=== PATIENT | male | born 1980 | race Caucasian/White ===

== ENCOUNTER 2018-01-07 16:17 | Emergency (ER) | payer OTHER ==
[~2018-01-07] VITALS: Ht 177.8 cm; Wt 117.9 kg
[2018-01-07 16:52] LABS: ABSOLUTE BASOPHIL COUNT 0.1 /CUMM (0.0-0.2); ABSOLUTE EOSINOPHIL COUNT 0.1 /CUMM (0.0-0.7); ABSOLUTE GRANULOCYTE CT 9.5 /CUMM (1.4-6.5); ABSOLUTE LYMPH COUNT 2.9 /CUMM (1.2-3.4); ABSOLUTE MONOCYTE COUNT 1.1 /CUMM (0.10-0.60); BASOPHIL % 0.5 % (0.0-2.0); EOSINOPHIL % 0.8 % (0-5); GRANULOCYTE % 69.5 % (42.2-75.2); HEMATOCRIT 46.7 % (42-52); MEAN CORPUSCULAR HGB CONC 33.3 G/DL (33.0-37.0); MEAN PLATELET VOLUME 8.1 FL (7.4-10.4); PLATELET COUNT 280 /CUMM (130-400); RBC DISTRIBUTION WIDTH 12.6 % (11.5-14.5); RED BLOOD CELL CT 5.18 /CUMM (4.70-6.10); WHITE BLOOD CELL COUNT 13.6 /CUMM (4.8-10.8)
--- NOTE | 2018-01-07 18:40 | ED GENERAL ADULT ---
History of Present Illness General Chief Complaint: Chest Pain Stated Complaint: SENT WALKIN FOR CHEST PRESSURE X FEW DAYS Source: patient Exam Limitations: no limitations Vital Signs & Intake/Output Vital Signs & Intake/Output Vital Signs Date Time Temp Pulse Resp B/P B/P Pulse O2 O2 Flow FiO2 Mean Ox Delivery Rate 01/07 2121 98.7 78 20 134/81 98 Room Air 01/07 2105 96 01/07 1920 98 Room Air 01/07 1918 99.3 82 16 132/72 98 Room Air 01/07 1633 99.2 92 18 160/88 96 Room Air Allergies Coded Allergies: No Known Allergies (01/07/18) Reconcile Medications No Known Home Medications Triage Note: PT STATES THAT FOR THE PAST 2 DAYS HE HAS BEEN HAVING MID CP/STOMACH PAIN AND COMPLAINS OF TIGHTNESS. PAIN DOES NOT RADIATE INTO ARM/JAW. DENIES N/V/D/SOB Triage Nurses Notes Reviewed? yes Onset: Abrupt Duration: day(s): Timing: recent history HPI: 01/07/18 7:30 PM 37-year-old male presents to the emergency department with intermittent chest tightness over the past several days. He was seen at an urgent care center and referred to the emergency department for further evaluation. He says that the pain is bilateral subcostal and worse with inspiration. He denies shortness of breath. (Joaquín Payan DO) Past History Travel History Traveled to [place] past 21 day No Medical History Any Pertinent Medical History? 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 No (Joaquín Payan DO) Review of Systems Review of Systems Constitutional: Denies: fever. EENTM: Reports: no symptoms. Respiratory: Denies: short of breath. Cardiovascular: Reports: chest pain. GI: Denies: abdominal pain. Genitourinary: Reports: no symptoms. Musculoskeletal: Reports: see HPI. Skin: Denies: rash. Neurological/Psychological: Reports: no symptoms. Hematologic/Endocrine: Reports: no symptoms. Immunologic/Allergic: Reports: no symptoms. (Joaquín Payan DO) Physical Exam Physical Exam General Appearance: well developed/nourished, alert, awake, anxious, mild distress Head: atraumatic, normal appearance Eyes: Bilateral: normal appearance, PERRL, EOMI. Ears, Nose, Throat: normal pharynx, normal ENT inspection Neck: normal inspection, supple Respiratory: normal breath sounds, chest non-tender, no respiratory distress Cardiovascular: regular rate/rhythm Peripheral Pulses: 4+ radial (R), 4+ radial (L) Gastrointestinal: soft, non-tender Back: normal range of motion Extremities: no edema Neurologic/Psych: no motor/sensory deficits, awake, alert, oriented x 3 Skin: intact, normal color, warm/dry Core Measures ACS in differential dx? Yes CVA/TIA Diagnosis: No Sepsis Present: No Sepsis Focused Exam Completed? No (Joaquín Payan DO) Progress Differential Diagnoses I considered the following diagnoses in my evaluation of the patient: [Acute coronary syndrome, pulmonary embolism, pneumothorax, reactive airway disease, bronchitis, pneumonia, costochondritis] Plan of Care: Orders Procedure Date/time Status TROPONIN LEVEL 01/08 1940 Complete EKG 01/07 194 Active Add-on Test (ER Only) 01/07 1908 Active D-DIMER 01/07 1641 Complete TROPONIN LEVEL 01/07 1637 Complete COMPREHENSIVE METABOLIC PANEL 01/07 1637 Complete CBC WITHOUT DIFFERENTIAL 01/07 163 Complete EKG 01/07 1618 Active Laboratory Tests 01/07/18 1937: Troponin I < 0.01 01/07/18 1641: Anion Gap 14, Estimated GFR > 60, BUN/Creatinine Ratio 13.3, Glucose 92, Calcium 9.5, Total Bilirubin 1.0, AST 19, ALT 42, Alkaline Phosphatase 68, Troponin I < 0.01, Total Protein 7.7, Albumin 4.4, Globulin 3.3, Albumin/Globulin Ratio 1.3, D-Dimer High Sensitivty < 200, CBC w Diff NO MAN DIFF REQ, RBC 5.18, MCV 90.0, MCH 30.0, MCHC 33.3, RDW 12.6, MPV 8.1, Gran % 69.5, Lymphocytes % 21.2, Monocytes % 8.0, Eosinophils % 0.8, Basophils % 0.5, Absolute Granulocytes 9.5 H, Absolute Lymphocytes 2.9, Absolute Monocytes 1.1 H, Absolute Eosinophils 0.1 , Absolute Basophils 0.1 Radiology Impression: pending Initial ED EKG: NSR, nonspecific ST T wave chg Comments: 01/07/18 7:30 PM The patient was signed out to Dr. Corona at 7:30 PM. Chest x-ray was pending. Serial troponins, repeat EKG. Reevaluated after nebulizer, Tylenol, and aspirin. (Joaquín Payan DO) Differential Diagnoses I considered the following diagnoses in my evaluation of the patient: CXR Impression: PATIENT: FERNANDO KILGORE PRESENT AGE: 37 PATIENT ACCOUNT NO: [id number] : 81 LOCATION: [facility] ORDERING PHYSICIAN: Joaquín Payan DO SERVICE DATE: 01/07/18 EXAM TYPE: RAD - XRY-CHEST XRAY, TWO VIEWS EXAMINATION: XR CHEST CLINICAL INFORMATION: Chest pain COMPARISON: None TECHNIQUE: 2 views of the chest were obtained. FINDINGS: Limited from body habitus. No obvious failure or infiltrate. There is no effusion. IMPRESSION: Limited exam from body habitus. 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 I have updated Asif on his test results. He feels well overall and has declined a prescription pain medication. I considered the following: Pericarditis but the patient had no pericardial friction rub, no preceding viral illnesses and no EKG changes consistent with this. Acute coronary syndrome but the patient's EKGS showed no acute changes, the troponin levels were normal, the patient had a paucity of risk factors and the patient's clinical presentation wasn't consistent with this. Pneumothorax but the chest x-ray did not show this. Pneumonia but the chest x-ray did not show infiltrate. Pulmonary embolus but the patient had no resting tachycardia, was not hypoxic, had a paucity of risk factors and the d-dimer was negative. Aortic aneurysm but the description of the patient's pain was inconsistent with this. The chest x-ray showed no widened mediastinum or other changes consistent with this. In addition the patient had a paucity of risk factors. (Chloe MOLINA,Joaquín Mohamud) Departure Departure Condition: Stable Departure Forms: Customer Survey General Discharge Information Prescriptions: Current Visit Scripts No Known Home Medications (Joaquín Payan DO) Departure Disposition: HOME OR SELF CARE Clinical Impression Primary Impression: Atypical chest pain Referrals: Patient Has No Primary Care Dr (PCP/Family) Miriam MOLINA PHD,Manny Driscoll Additional Instructions: Ibuprofen 600 mg every 6 hours as needed for your chest pain. Avoid exertion or heavy lifting. Follow-up with Dr. Pineda this week for reevaluation. Follow- up with your primary care physician as soon as possible for general medical evaluation as well. Return if any concerns or sudden worsening. Please note that there might be incidental findings in your evaluation that are unrelated to the current emergency department visit. Please notify your primary care doctor about this emergency department visit in order to obtain and review all of the testing performed so that these incidental findings can be monitored as needed. If you had an x-ray performed, please understand that some fractures may not be seen on the initial set of x-rays. If your symptoms persist you might need a repeat set of x-rays to check for such a fracture. If you had a laceration evaluated, please understand that foreign bodies such as glass or wood may not be visible to the naked eye or on plain x-rays. If the wound becomes red, swollen, increasingly more painful or if there is any drainage from the wound, please have it reevaluated by a physician for the possibility of a retained foreign body. If you're unable to follow up as outlined in the discharge instructions please return to the emergency department. Thank you for choosing the [facility] Emergency [facility] for your care. It was a pleasure to serve you today. Joaquín Corona M.D. [facility] (Chloe MOLINA,Joaquín Mohamud) Critical Care Note Critical Care Note Critical Care Time: 30-74 min (Joaquín Payan DO)
--- NOTE | 2018-01-07 19:41 | RADIOLOGY REPORT ---
EXAMINATION: XR CHEST CLINICAL INFORMATION: Chest pain COMPARISON: None TECHNIQUE: 2 views of the chest were obtained. FINDINGS: Limited from body habitus. No obvious failure or infiltrate. There is no effusion. IMPRESSION: Limited exam from body habitus. No convincing evidence for an acute finding
[2018-01-07 21:21] VITALS: BP 134/81
== END 2018-01-07 22:18 ==
LOC: ERH 16:17
PROVIDERS: Emergency Medicine
DX: R07.89 Other chest pain (principal)
CPT/HCPCS: 1263; 71046; 93005; 93010